=== PATIENT | male | born 1990 | race Caucasian/White ===

== ENCOUNTER 2017-03-02 23:33 | Emergency (ER) | payer OTHER ==
[~2017-03-02] VITALS: Ht 182.9 cm; Wt 78.0 kg
[2017-03-03] VITALS: BP_SYST 151
[2017-03-03] MEDS ORDERED: KETOROLAC TROMETHAMINE 60 MG/2 ML VIAL IM ONE (01:30)
[2017-03-03 03:29] VITALS: BP_SYST 143
[2017-03-03] MEDS ORDERED: OXYCODONE/ACETAMINOPHEN 5-325 TABLET PO ONE (03:30)
== END 2017-03-03 03:29 | disposition home or self-care (01) ==
LOC: SED 23:33
DX: S30.0XXA Contusion of lower back and pelvis, initial encounter (principal); M54.30 Sciatica, unspecified side; F17.200 Nicotine dependence, unspecified, uncomplicated; W10.9XXA Fall (on) (from) unspecified stairs and steps, initial encounter; Y93.89 Activity, other specified; Y99.8 Other external cause status; Y92.89 Other specified places as the place of occurrence of the external cause
CPT/HCPCS: 72131; 96372; 99284; J1885; J7030

== ENCOUNTER 2020-12-02 00:04 | Emergency (ER) | payer MEDICAID, OTHER ==
[~2020-12-02] VITALS: Ht 182.9 cm; Wt 70.3 kg
[2020-12-02 00:19] VITALS: BP_SYST 156
[2020-12-02 02:05] VITALS: BP_SYST 156
== END 2020-12-02 02:04 | disposition home or self-care (01) ==
LOC: SED 00:04
DX: S93.601A Unspecified sprain of right foot, initial encounter (principal); W50.0XXA Accidental hit or strike by another person, initial encounter; Y93.71 Activity, boxing; Y92.89 Other specified places as the place of occurrence of the external cause; Y99.8 Other external cause status
CPT/HCPCS: 99283